=== PATIENT | female | born 1985 | race Hispanic/Latino ===

== ENCOUNTER 2021-12-27 11:26 | Emergency (ER) | payer SELFPAY ==
--- NOTE | 2021-12-27 11:45 | Emergency Department Report ---
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 The patient has a history of seizures and she recently stopped taking her Dilantin because she is . Today she has had 4 seizures of unknown duration 2 of which were not witnessed. I could not get any information on the type of seizure nor duration. The patient currently is complaining of generalized weakness and malaise. She denies nausea vomiting fe april chills chest pain focal weakness headache or any other associated symptoms. Nothing makes this better or worse. She could not give me any reliable menstrual cycle dates and she is currently having some mild vaginal bleeding so she is unsure if she is or not. ED Past Medical Hx - Past Medical History Hx Seizures: Yes - Surgical History Past Surgical History?: No - Family History Family history: no significant - Social History Smoking Status: Current Every Day Smoker Substance Use Type: None, Other (Opiates and benzodiazepines) - Medications Home Medications: Home Medications Medication Instructions Recorded Confirmed Last Taken Type Phenytoin [Dilantin] 100 mg PO Q8HR #90 capsule 12/27/21 Unknown Rx ED Review of Systems ROS: Stated complaint: SEIZURE X 3 Other details as noted in HPI Comment: All other systems reviewed and negative Physical Exam - Physical Exam Vital Signs: As charted by nursing, reviewed. Physical Exam: Physical Exam: Constitutional: AAOX3. No acute distress. No diaphoresis. HENT: Normocephalic. Pupils equal and reactive. No throat edema or erythema. Neck: No neck rigidity or tenderness. Cardiovascular: Heart sounds: No murmur. Normal rate and regular rhythm. Pulses: Intact distal pulses. Lungs: No wheezing or rales. Chest wall: No tenderness. Abdominal: No distension. No mass/pulsatile mass. No abdominal tenderness, guarding nor rebound. Musculoskeletal: Normal range of motion. No edema, No calf TTP. Skin: Warm and dry. Neurological: Alert and oriented to person, place, and time. Psychiatric: Normal mood with flat affect. Normal cognition and memory. Normal judgement. ED Course - Reevaluation(s) Reevaluation #1: 12/27/21 13:24 The patient remained stable throughout her stay in the emergency department. Her test came back negative we will load her with Dilantin and send her back to rehab on 100 mg 3 times daily of Dilantin. ED Medical Decision Making - Lab Data Result diagrams: 12/27/21 11:46 12/27/21 11:46 Critical care attestation.: If time is entered above; I have spent that time in minutes in the direct care of this critically ill patient, excluding procedure time. ED Disposition Clinical Impression: Seizures Disposition: [facility] Is pt being admited?: No Does the pt Need Aspirin: No Condition: Stable Instructions: Epilepsy, [id number] Prescriptions: Phenytoin [Dilantin] 100 mg PO Q8HR #90 capsule Time of Disposition: 13:25 Print Language: TUNISIAN
[2021-12-27 12:27] LABS: Basophils % (Auto) 0.1 % (0.0-1.8); Lymphocytes # (Auto) 1.7 K/mm3 (1.2-5.4); Lymphocytes % (Auto) 17.3 % (13.4-35.0); Mean Corpuscular HGB Conc 33 % (30-34); Mean Corpuscular Volume 89 fl (79-97); Monocytes # (Auto) 0.5 K/mm3 (0.0-0.8); Monocytes % (Auto) 5.1 % (0.0-7.3); Platelet Count 291 K/mm3 (140-440); Red Blood Count 4.38 M/mm3 (3.65-5.03); Red Cell Distribution Width 13.6 % (13.2-15.2)
[2021-12-27 12:30] LABS: Alanine Aminotransferase 12 units/L (7-56); Albumin 4.1 g/dL (3.9-5); Blood Urea Nitrogen 24 mg/dL (7-17); Calcium 9.8 mg/dL (8.4-10.2); Hemolysis Index 6
[2021-12-27 12:33] LABS: BUN/Creatinine Ratio 34
[2021-12-27 12:35] VITALS: BP 148/90
[2021-12-27] MEDS ORDERED: PHENYTOIN 1,000 MG in SODIUM CHLORIDE 0.9% 250ML 250 ML IV ONE (14:00)
[2021-12-27] MEDS ORDERED: KETOROLAC 30 MG/1 ML INJ IV ONE (14:54)
== END 2021-12-27 18:00 ==
LOC: ED 11:26
DX: O26.899 Other specified pregnancy related conditions, unspecified trimester (principal); R56.9 Unspecified convulsions; Z3A.00 Weeks of gestation of pregnancy not specified; F17.200 Nicotine dependence, unspecified, uncomplicated
CPT/HCPCS: 36415; 80053; 84702; 85025; 96365; 96375; 99284; J1165; J1885; J7050